=== PATIENT | male | born 1995 | race African-American/Black ===

== ENCOUNTER 2016-12-14 16:57 | Inpatient (IN) ==
[2016-12-14] MEDS ORDERED: ZOFRAN IV PRN (17:39)
[2016-12-14] MEDS ORDERED: TYLENOL PO PRN (17:39)
[2016-12-14] MEDS: ZOSYN 3.375 GM/NS 3.375 GM/50 ML IVPB IV SCH (18:46)
[2016-12-14] MEDS: SOLU-MEDROL IV SCH (18:47)
[2016-12-14] MEDS: NS 1,000 ML IV SCH (18:47)
[2016-12-14] MEDS: HYDROXYZINE PO PRN (22:52)
[2016-12-14] MEDS: RESTORIL PO PRN (22:52)
[2016-12-15] MEDS: ZOSYN 3.375 GM/NS 3.375 GM/50 ML IVPB IV SCH ×2 (00:11→05:54)
[2016-12-15] MEDS: SOLU-MEDROL IV SCH ×3 (02:19→17:34)
[2016-12-15] MEDS: PRILOSEC PO SCH (06:19)
[2016-12-15] MEDS: HYDROXYZINE PO PRN ×3 (06:19→21:38)
[2016-12-15 06:23] LABS: HEMATOCRIT 41.6 % (42.0-52.0); HEMOGLOBIN 14.4 g/dL (14.0-18.0); MCH 32.7 PG (27-31); MCHC 34.6 g/dL (33-37); MCV 94.5 FL (81-99); MPV 10.2 FL (7.4-10.4); RBC 4.4 XMIL (4.7-6.1)
[2016-12-15 06:41] LABS: AGAP 11; ALBUMIN 4.4 g/dL (3.5-5.0); ALKALINE PHOSPHATASE 97 U/L (32-122); BUN 7 mg/dL (8-22); CALCIUM 9.2 mg/dL (8.8-10.2); CHLORIDE 103 mmol/L (98-107); COSMO 272; GOT 17 U/L (10-34); GPT 20 U/L (10-44); POTASSIUM 4.9 mmol/L (3.5-5.1); SODIUM 136 mmol/L (136-145); TCO2 22 mmol/L (25-35); TOTAL PROTEIN 7.4 g/dL (6.3-8.3)
[2016-12-15] MEDS: ROCEPHIN 1 GM/NS 1 GM/50 ML IVPB IV SCH (09:06)
--- NOTE | 2016-12-15 10:38 | PROGRESS NOTE ---
DATE: 12/15/2016 SUBJECTIVE: The patient noted he had a difficult night last night with itching; otherwise, he feels okay. Denies any chest pains or palpitations. PHYSICAL EXAMINATION: Vital Signs: Temperature 98, pulse 67 respiratory rate 20, BP 112/50, sat 97% on room air. General: Patient is awake, alert, currently in no respiratory distress. Pleasant to talk with. Neck: Supple. CV: Regular rate. Chest: Clear. Abdomen: Soft. Extremities: Moves all extremities. Neurologic: No changes. Skin: The patient has had multiple areas of broken skin and excoriations as well as dry, flaking skin noted throughout most of his body. ASSESSMENT: Allergic reaction. We will continue Solu-Medrol and Rocephin. cc: John Fuentes MD
[2016-12-15] MEDS: NS 1,000 ML IV SCH (12:41)
[2016-12-15 18:49] LABS: UR AMPHETAMINES QUAL NONE DETECTED (NONE DETECT); UR BARBITUATES QUAL NONE DETECTED (NONE DETECT); UR BENZODIAZEPIN QUAL NONE DETECTED (NONE DETECT); UR CANNABINOIDS QUAL NONE DETECTED (NONE DETECT); UR COCAINE QUAL NONE DETECTED (NONE DETECT); UR MDMA QUAL NONE DETECTED (NONE DETECT); UR METHADONE QUAL NONE DETECTED (NONE DETECT); UR METHAMPHETAMINE QUAL NONE DETECTED (NONE DETECT); UR OPIATES QUAL NONE DETECTED (NONE DETECT); UR OXYCODONE QUAL NONE DETECTED (NONE DETECT); UR PCP QUAL NONE DETECTED (NONE DETECT); UR TCA QUAL NONE DETECTED (NONE DETECT)
[2016-12-15] MEDS: RESTORIL PO PRN (21:38)
[2016-12-16] MEDS: SOLU-MEDROL IV SCH (01:49)
[2016-12-16] MEDS: PRILOSEC PO SCH (06:41)
[2016-12-16] MEDS: ROCEPHIN 1 GM/NS 1 GM/50 ML IVPB IV SCH (09:31)
[2016-12-16] MEDS ORDERED: SOLU-MEDROL IV SCH (14:00)
[2016-12-16] MEDS: NS 1,000 ML IV SCH (14:53)
--- NOTE | 2016-12-16 15:47 | HISTORY AND PHYSICAL ---
CHIEF COMPLAINT: Itching all over. HISTORY OF PRESENT ILLNESS: This is a 21-year-old male who presented as a direct admit for an allergic reaction. He was noted to have erythematous rash over most of his body that he states is itching. He does have some areas that are open due to scratching. He does have a history of eczema and he did present to the emergency room 10/11/2016 with symptoms quite similar to this and received steroids as well as Vistaril and Zyrtec. He did follow up with his immigration lawyer. He did have resolution of these symptoms at that time. PAST MEDICAL HISTORY: Asthma, eczema, bipolar disorder type 1, history of atopic dermatitis from head to toe. PAST SURGICAL HISTORY: Denies. SOCIAL HISTORY: He does marijuana. He does have alcohol use. ALLERGIES: No known drug allergies. HOME MEDICATIONS: Bactrim 1 b.i.d., Singulair 10 mg at bedtime, Invega 819 mg IM. REVIEW OF SYSTEMS: 14 point review of systems is discussed with patient with pertinent positives stated in HPI. He denied chest pain, palpitations, shortness of breath, fever, chills, nausea, vomiting, diarrhea, constipation, black or bloody vomitus, black or bloody stools, hematuria, dysuria, frequency, urgency. PHYSICAL EXAMINATION: GENERAL: This is a 21-year-old male who is being admitted as a direct admit for allergic reaction versus eczema flare. VITAL SIGNS: Blood pressure is 130/62 with a heart rate of 79, respirations are 20, temperature is 97.7 degrees oral with room air saturation 97%. HEENT: Head is normocephalic, atraumatic. Pupils equal, round, react to light. EOMs are intact. Sclerae nonicteric. Mucous membranes are moist. NECK: Supple. Trachea midline. CARDIOVASCULAR: Regular rate and rhythm S1, S2 appreciated. PULMONARY: Breath sounds are clear with no increased work of breathing noted. GASTROINTESTINAL: Soft, nontender, nondistended with bowel sounds in all 4 quadrants. MUSCULOSKELETAL: Good range of motion of joints. EXTREMITIES: No clubbing, cyanosis or edema. Calves nontender. Pulses palpable x4. NEUROLOGIC: Alert, orient x3. Cranial nerves 2-12 intact. SKIN: Warm and dry with an erythematous rash noted all over body. ASSESSMENT: 1. Allergic reaction versus eczema flare versus topic dermatitis. 2. History of eczema. 3. Bipolar disorder type 1. PLAN: He will be admitted to the hospital. We will obtain urine drug screen as well as a CBC and a CMP. We will identify the home medications and continue as appropriate. We will give steroids IV as well as hydroxyzine. Further treatments pending hospital course. Dictated by JULIA Velez for John Fuentes MD cc: JULIA Velez MD
[2016-12-16 16:44] VITALS: BP 133/66
--- NOTE | 2016-12-19 03:49 | DISCHARGE SUMMARY ---
ADMISSION DATE: 12/14/2016 DISCHARGE DATE: 12/16/2016 DIAGNOSIS: Allergic reaction versus psoriasis flare. HOSPITAL COURSE: Mr. Garcia presented to the emergency room with an erythematous rash over his whole body. He was not sure if this was an allergic reaction or a psoriasis exacerbation. He was treated with Solu-Medrol and Rocephin. White count was 4.9. He remained afebrile. Today he states his rash is gone, he has no itching, he feels back to normal and he is ready to go home. DISCHARGE PHYSICAL EXAMINATION: CARDIOVASCULAR: Regular rate and rhythm. S1, S2 appreciated. PULMONARY: Breath sounds are clear. No increased work of breathing noted. GASTROINTESTINAL: Abdomen is soft, nontender, nondistended with bowel sounds in all 4 quadrants. SKIN: Warm and dry with erythema noted but continues to clear. DISCHARGE VITAL SIGNS: Blood pressure is 126/58 with a heart rate of 62, respirations 19, temperature 97.7 degrees. Oral with room air saturations 98%. DISCHARGE MEDICATIONS: 1. Singulair 10 mg at bedtime. 2. Invega Trinza 819 mg IM as directed. 3. Medrol Dosepak as directed. FOLLOWUP: He needs to call his chainstitch sewing machine operator in [place] Monday and get an update on events and set up an appointment for followup. CONDITION AT DISCHARGE: He is being discharged home in stable condition with family members. TIME SPENT: This is a greater than 30 minute discharge. Dictated by JULIA Velez for John Fuentes MD cc: JULIA Velez MD
== END 2016-12-16 17:20 | disposition home or self-care (01) ==
LOC: P.DIRADM 16:57 → P.MEDSURG 17:04
PROVIDERS: ADMIT Family Medicine; ATTEND Family Medicine